=== PATIENT | male | born 1975 | race Caucasian/White ===

== ENCOUNTER 2018-03-03 14:19 | Emergency (ER) | payer MEDICAID, OTHER, SELFPAY ==
[~2018-03-03] VITALS: Ht 170.2 cm; Wt 69.0 kg
[2018-03-03] MEDS ORDERED: PLEASE ENTER ALLERGIES MC SCH (14:30)
[2018-03-03] MEDS ORDERED: PLEASE ENTER HEIGHT AND WEIGHT MC SCH (14:30)
[2018-03-03] MEDS ORDERED: HYDROcodone/APAP 5/325 TABLET PO ONE ×2 (14:30)
[2018-03-03] MEDS ORDERED: HYDROcodone/APAP 5/325 TABLET ONE ×2 (14:35→14:50)
[2018-03-03 15:19] VITALS: BP 119/71
== END 2018-03-03 15:47 | disposition home or self-care (01) ==
LOC: ED 15:08
DX: S02.2XXA Fracture of nasal bones, initial encounter for closed fracture (principal); S09.8XXA Other specified injuries of head, initial encounter; Y04.0XXA Assault by unarmed brawl or fight, initial encounter; Y93.89 Activity, other specified; Y92.89 Other specified places as the place of occurrence of the external cause; Y99.0 Civilian activity done for income or pay
CPT/HCPCS: 70450; 70486; 99284